=== PATIENT | male | born 1995 | race Hispanic/Latino ===

== ENCOUNTER 2016-09-06 22:08 | Emergency (ER) | payer OTHER ==
[~2016-09-06] VITALS: Ht 167.6 cm; Wt 85.7 kg
[2016-09-06 22:10] VITALS: BP 146/86
== END 2016-09-07 00:40 | disposition home or self-care (01) ==
LOC: M ED 23:20
DX: S00.83XA Contusion of other part of head, initial encounter (principal); V48.0XXA Car driver injured in noncollision transport accident in nontraffic accident, initial encounter; Y92.410 Unspecified street and highway as the place of occurrence of the external cause; Y93.9 Activity, unspecified; Y99.9 Unspecified external cause status